=== PATIENT | male | born 1990 | race Hispanic/Latino ===

== ENCOUNTER 2023-12-23 18:59 | Emergency (ER) | payer OTHER, SELFPAY ==
[2023-12-23] VITALS (8 sets, daily range): BP systolic 62–122; BP diastolic 37–80; PULSE 55–80; BMI 20.7
[2023-12-23 22:40] LABS: % Basophils 0.7 % (0-2); % Immature Granulocytes 0.2 % (0-0.5); % Lymphocytes 20.3 % (20.5-51.1); % Monocytes 10.8 % (1.7-9.3); Absolute Basophils 0.1 10^3/uL (0-0.2); Absolute Eosinophils 0.1 10^3/uL (0-0.7); Absolute Lymphocytes 1.9 10^3/uL (1.2-3.4); Absolute Neutrophils 6.2 10^3/uL (1.4-6.5); Hematocrit 36.9 % (39.0-52.0); Hemoglobin 11.6 g/dL (13.0-18.0); Mean Corp Hgb Conc. 31.4 g/dL (33.0-37.0); Mean Corpuscular Hgb 21.1 pg (27.0-31.0); Mean Corpuscular Volume 67.1 fL (80.0-94.0); Mean Platelet Volume 9.6 fL (7.4-10.4); Nucleated Red Blood Cells % 0 % (-); Platelet Count 313 10^3/uL (130-400); Red Cell Dist. Width 14.7 % (11.5-14.5); White Blood Cell Count 9.2 10^3/uL (4.8-10.8)
--- NOTE | 2023-12-23 22:54 | ED.GENMED ---
History of Present Illness
<Melissa Cramer MD, Resident - Last Filed: 12/24/23 15:30>
General
Chief Complaint: Dizziness
Source: patient and family
Exam Limitations: none
Time Seen by Provider: 12/23/23 22:46
Nursing documentation reviewed up to this point in time: agreed with
History of Present Illness
History of Present Illness:
33-year-old male with no significant past medical history presented to the ED with intermittent positional dizziness x few weeks. Initially noted occasional sensation of heat on back of his head and dizziness upon standing lasting for a few seconds
only. Symptoms have become more frequent. Yesterday he was reaching for a cereal box on top of the freezer in the kitchen and lost consciousness. He was found by his mother on the kitchen, bleeding from a R eyelid laceration. Mother estimates that
he was on the floor for about 5 minutes. The cut was treated at home by his mother and father who cleaned the wound and dressed with the butterfly bandaid. No abnrmal movement noted or confusion after he came to.
Pt denies chest pain, palpitations, fever, recent illness, nausea, vomiting, diarrhea, abdominal pain, hematuria, bloody/black stool. Denies eye pain or visin changes.
Past History
<Melissa Cramer MD, Resident - Last Filed: 12/24/23 15:30>
Past History
ED Past Medical History: None
ED Past Surgical History: None
Social History
Tobacco: Vaping
Alcohol: None
Drug: Narcotics (Fentanyl, a few bags a week)
Living: with family
Review of Systems
<Melissa Cramer MD, Resident - Last Filed: 12/24/23 15:30>
Review of Systems
Allergies reviewed?: Yes
All Other Systems: ROS reviewed and negative except as documented in HPI and ROS
Phy Exam
<Melissa Cramer MD, Resident - Last Filed: 12/24/23 15:30>
General Physical Exam
General Presentation: well appearing and no apparent distress
General age: appears stated age
General Skin: warm and dry
General Hydration: appears well hydrated
ENT Exam
ENT Exam: EOMI, TM's normal, pharynx normal and neck supple
Eye Exam
Eye Exam: PERRL, EOMI, cornea clear, conjunctiva normal, globe normal and other (Swelling and bruising of R upper eyelid. Small laceration noted on R upper eyelid with butterfly bandaid dressing. No subconjunctival hemorrhage or global tenderness)
Cardiovascular Exam
Cardiovascular Exam: regular rate/rhythm, no edema, no gallop, no murmur and normal peripheral pulses
Pulmonary Exam
Pulmonary Exam: lungs clear, no respiratory distress, no rales, no crackles, no rhonchi, no wheezing and no cough
Oxygen Status: room air
Gastrointestinal Exam
Gastrointestinal Exam: normal bowel sounds, non tender, soft, non distended and no cva tenderness
Neurological Exam
Neurological Exam: no motor deficits, no sensory deficits and speech normal
Course
<Melissa Cramer MD, Resident - Last Filed: 12/24/23 15:30>
Orders/Labs/Results
Orders:
Orders
12/23/23 19:10
Electrocardiogram (*1) Urgent
Reason for Study: Vertigo / Dizzy
EKG- Treatment ONCE
12/23/23 22:32
CBC/With Diff [Complete Blood Count/With Diff] Urgent
Comprehensive Metabolic Panel Urgent
Ferritin Urgent
Iron Urgent
Comment: ADDED
Total Iron Binding Urgent
Comment: ADDED
12/23/23 23:44
Orthostatic VS- Treatment ONCE
0.9% Sodium Chloride 1000 ml [Nss] 1,000 ml IV BOLUS
12/24/23 00:10
Add On- LAB Urgent
Tests Added?: ferritin, iron, total iron binding
12/24/23 01:28
Tetanus/Diphth/Acelpertussis [Adacel] 0.5 ml IM .ONCE ONE
Abnormal Lab Results
12/23/23
22:32
Hgb 11.6 L g/dL
(13.0-18.0)
Hct 36.9 L %
(39.0-52.0)
MCV 67.1 L fL
(80.0-94.0)
MCH 21.1 L pg
(27.0-31.0)
MCHC 31.4 L g/dL
(33.0-37.0)
RDW 14.7 H %
(11.5-14.5)
Absolute Monos (auto) 1.0 H 10^3/uL
(0.1-0.6)
Lymphocytes % 20.3 L %
(20.5-51.1)
Monocytes % 10.8 H %
(1.7-9.3)
Potassium 5.2 H mmol/L
(3.5-5.1)
BUN 22 H mg/dl
(9-20)
Glucose 117 H mg/dl
(70-99)
TIBC 254 L ug/dl
(261-462)
12/23/23 22:32
12/23/23 22:32
Vital Signs
Initial and Last Documented VS:
Initial Vital Signs
Temp Pulse Resp BP Pulse Ox
98.9 F 70 20 110/72 100
12/23/23 19:12/23/23 19:12/23/23 19:12/23/23 19:12/23/23 19:05
Last Documented Vital Signs
Temp Pulse Resp BP Pulse Ox
98.9 F 62 19 123/81 100
12/23/23 19:05 12/24/23 01:30 12/24/23 01:30 12/24/23 01:30 12/24/23 01:00
<Malachi Lennon MD - Last Filed: 12/24/23 01:36>
Orders/Labs/Results
Orders:
Orders
12/23/23 19:10
Electrocardiogram (*1) Urgent
Reason for Study: Vertigo / Dizzy
EKG- Treatment ONCE
12/23/23 22:32
CBC/With Diff [Complete Blood Count/With Diff] Urgent
Comprehensive Metabolic Panel Urgent
Ferritin Urgent
Iron Urgent
Comment: ADDED
Total Iron Binding Urgent
Comment: ADDED
12/23/23 23:44
Orthostatic VS- Treatment ONCE
0.9% Sodium Chloride 1000 ml [Nss] 1,000 ml IV BOLUS
12/24/23 00:10
Add On- LAB Urgent
Tests Added?: ferritin, iron, total iron binding
12/24/23 01:28
Tetanus/Diphth/Acelpertussis [Adacel] 0.5 ml IM .ONCE ONE
Abnormal Lab Results
12/23/23
22:32
Hgb 11.6 L g/dL
(13.0-18.0)
Hct 36.9 L %
(39.0-52.0)
MCV 67.1 L fL
(80.0-94.0)
MCH 21.1 L pg
(27.0-31.0)
MCHC 31.4 L g/dL
(33.0-37.0)
RDW 14.7 H %
(11.5-14.5)
Absolute Monos (auto) 1.0 H 10^3/uL
(0.1-0.6)
Lymphocytes % 20.3 L %
(20.5-51.1)
Monocytes % 10.8 H %
(1.7-9.3)
Potassium 5.2 H mmol/L
(3.5-5.1)
BUN 22 H mg/dl
(9-20)
Glucose 117 H mg/dl
(70-99)
TIBC 254 L ug/dl
(261-462)
12/23/23 22:32
12/23/23 22:32
Vital Signs
Initial and Last Documented VS:
Initial Vital Signs
Temp Pulse Resp BP Pulse Ox
98.9 F 70 20 110/72 100
12/23/23 19:05 12/23/23 19:05 12/23/23 19:05 12/23/23 19:05 12/23/23 19:05
Last Documented Vital Signs
Temp Pulse Resp BP Pulse Ox
98.9 F 62 19 123/81 100
12/23/23 19:05 12/24/23 01:30 12/24/23 01:30 12/24/23 01:30 12/24/23 01:00
<Melissa Cramer MD, Resident - Last Filed: 12/24/23 15:30>
MDM/Problems Addressed
Differential Diagnosis Includes:
Orthostatic hypotention, anemia, intracranial process
MDM/Problems Addressed:
Neuro exam intact. Pt is in no acute distress. EKG showed sinus bradycardia, microcytic anemia on CBC, potassium 5.2, positive orthostatic vitals. Given normal neuro status and other positive findings, CT head not necessary at this time. Will get
iron studies for microcytic anemia, give IVF and reassess.
<Malachi Lennon MD - Last Filed: 12/24/23 01:36>
*Pulse Oximetry
Patient hypoxic: no
*EKG
Interpreted by ED Provider?: Yes
Heart Rate: 53
Rate: bradycardiac
Rhythm: sinus
Boon: normal axis
Interval: normal interval
QRS Pattern: normal QRS
Ischemia: no ischemia
*Critical Care Note
Total Time (30-74mins, 75-104mins- exclusive of procedures): Not Applicable
ED Attending Note
<Melissa Cramer MD, Resident - Last Filed: 12/24/23 15:30>
-
Portions of this chart may have been created with voice recognition software.� Occasional wrong word or��sound alike� substitutions may have occurred due to the inherent limitations of voice recognition software.
<Malachi Lennon MD - Last Filed: 12/24/23 01:36>
ED Attending Note
Patient seen and examined by attending physician: Yes
I performed a history and physical exam of patient and discussed management with resident, I reviewed resident's note and agree with documented findings and plan of care.: Yes
ED Attending Note:
I have seen and evaluated the patient with a [id number] encounter. I have spoken to the resident and involved in the medical history, the physical exam, medical decision making.
Evaluation and management service: agree unless noted differently below.
Results interpretation: agree unless noted differently below.
Focused HPI: 33-year-old male with no reported chronic medical issues presents to the emergency room for evaluation of lightheadedness. Patient reports that for the past 3 to 4 days he noticed that he gets very lightheaded with positional changes.
He says that when he goes from sitting to standing he becomes very faint. He says that yesterday this culminated in him actually passing out after he stood up. He did hit his head on the floor and sustained a minor abrasion/laceration to the right
eyebrow which he approximated with butterfly tape. He says that today he continued to feel lightheaded and he decided he should finally come to the ER to be evaluated. He denies any chest pain or palpitations. Denies any shortness of breath. He
denies any headache. He denies any abdominal pain or flank pain. He does admit that he primarily drinks soda and does not drink very much water.
Physical exam: Awake alert not in distress. Vital signs noted all within normal limits however his orthostatic vital signs were markedly positive. He has some right periorbital ecchymosis and a minor abrasion to the right eyebrow which is
well-healing. His pupils are equal round and reactive to light bilaterally, extraocular movements are intact without pain. Tongue atraumatic, no loose teeth, tacky mucous membranes. He has no cardiac rubs gallops or murmurs. He has a very faint
scattered wheeze on lung auscultation.
Medical Decision Makin-year-old male presents for evaluation of positional lightheadedness that culminated in a syncopal event yesterday. He did have a fall with minor head trauma as a result; minor abrasion to the eye brow, will update
tetanus. Vitals normal here although his orthostatic vital signs were markedly positive with a drop in his blood pressure on standing and he was symptomatic. Will send labs including a CBC and a CMP. Will check EKG. Provide fluids. Reassess
after the above.
Labs reviewed�CBC shows very microcytic anemia unlikely accounts for symptoms--discussed with patient he will follow-up with his primary care physician. He had marginal hyperkalemia and top normal creatinine suspect dehydration�he was given fluids
here and his orthostatic vitals normalized and he was feeling much better. Advised him to increase his p.o. water intake. Follow-up with his PCP. Stable for discharge.
Discharge Plan
Departure
Patient Disposition: Home (Routine Discharge)
Date of Disposition: 12/24/23
Time of Disposition: 01:37
Patient with high blood pressure during this ER visit?: No
Discharge Problem:
Syncope, Dehydration, Anemia, Abrasion of right eyebrow
Instructions: Fainting, Adult ED
Referrals:
NONE,* [Family Provider] -
Activity Restrictions/Additional Instructions:
Thank you for visiting the Emergency Department at [facility].
1. Please schedule a follow up appointment as directed. Call first thing tomorrow morning to make an appointment.
2. If indicated, please take your medications as instructed and indicated on discharge paperwork.
3. If any of your symptoms do not improve, or persist, or become more severe within 6-12 hours, please return to the emergency department for further care.
4. Please return to the emergency department if you develop a headache, neck pain/stiffness, fever greater than 100.4F, chest pain, shortness of breath, persistent nausea, vomiting, slurred speech, difficulty walking, numbness/tingling, weakness,
signs of infection or any other symptoms that are worrisome to you.
Please call [phone] if you have any questions.
Interventions
Interventions:
*Risk Screen - Suicide Last Done: 12/23/23 19:05
*General Assessment Last Done: 12/23/23 23:54
*Neglect/Abuse Screening Last Done: 12/23/23 19:05
ED- Fall Risk Assessment Last Done: 12/24/23 01:43
*ED COVID-19 Vaccine History Last Done: 12/24/23 01:43
*Nursing Disposition Last Done: 12/24/23 01:43
ED- Neurological Assessment Last Done: 12/24/23 00:15
Discharge Date and Time
Discharge Date/Time: 12/24/23 01:43
Print Language: LIBERIAN
[2023-12-23 23:11] LABS: ALT (SGPT) < 10 U/L (0-50); AST (SGOT) 29 U/L (17-59); Albumin 4.3 g/dl (3.5-5.0); Alkaline Phosphatase 71 U/L (38-126); Blood Urea Nitrogen 22 mg/dl (9-20); Carbon Dioxide 29 mmol/L (22-30); Chloride 98 mmol/L (98-107); Glucose 117 mg/dl (70-99); Potassium 5.2 mmol/L (3.5-5.1); Sodium 137 mmol/L (135-145); Total Bilirubin 0.5 mg/dl (0.2-1.3); Total Protein 7.1 g/dl (6.3-8.2); eGFR > 60.00
[2023-12-23] MEDS: NSS 1000 IV (23:54)
[2023-12-24] VITALS: BP 121/78
[2023-12-24 00:41] LABS: Iron 110 ug/dl (49-181)
[2023-12-24 00:55] LABS: Percent Saturation 43 % (20-50); Total Iron Binding Capacity 254 ug/dl (261-462)
[2023-12-24 01:00] VITALS: BP 132/92
[2023-12-24 01:25] VITALS: BP 123/81; BP 137/100; BP 150/95; PULSE 45; PULSE 52; PULSE 62
[2023-12-24 01:27] VITALS: BP 150/95
[2023-12-24 01:28] VITALS: BP 137/100
[2023-12-24 01:29] LABS: Ferritin 96.4 ng/ml (17.9-464.0)
[2023-12-24 01:30] VITALS: BP 123/81
[2023-12-24] MEDS: ADACEL 0.5 ML IM (01:34)
== END 2023-12-24 01:43 | disposition home or self-care (01) ==
LOC: EMR 18:59
PROVIDERS: Emergency Medicine; EMERGENCY PHYSICIAN Emergency Medicine
DX: R55 Syncope and collapse (principal); D50.9 Iron deficiency anemia, unspecified; E86.0 Dehydration; S00.211A Abrasion of right eyelid and periocular area, initial encounter; W19.XXXA Unspecified fall, initial encounter; F17.290 Nicotine dependence, other tobacco product, uncomplicated; Z23 Encounter for immunization
CPT/HCPCS: 99284; 96360; 90471; 80053; 82728; 83540; 83550; 85025; 90715; 93005